=== PATIENT | female | born 1945 | race Caucasian/White ===

== ENCOUNTER 2016-09-22 18:27 | Observation (INO) | payer MEDICARE, BC ==
[~2016-09-22] VITALS: Ht 160 cm; Wt 62.2 kg
[~2016-09-22 18:27] MED LIST: BRILINTA90 MG PO; HYDROCODONE-APA1 TAB PO; XANAX1 MG; XANAX1 MG PO; ZIAC 5-6.25 MG1 TAB PO
[2016-09-22] MEDS ORDERED: PLAVIX75 MG PO (20:08)
[2016-09-22] MEDS ORDERED: ZYRTEC-D T1 TAB.SR . PO (20:09)
[2016-09-22] MEDS ORDERED: BAYER CHEWABLE81 MG PO (20:10)
[2016-09-22 20:25] VITALS: BP 115/76
--- NOTE | 2016-09-22 20:44 | NUR ---
PT ARRIVED FROM ADMISSIONS TO ROOM 2120 AT 1900. AMBULATORY/ALERT. ACCOMPANIED BY HER . ANXIOUS ABOUT BEING IN THE HOSPITAL, APPARENTLY MD WANTED HER TO COME IN YESTERDAY AND SHE PUT IT OFF UNTIL TODAY. NOW THAT SHE IS HERE, PLAN OF CARE HAS BEEN REVIEWED. PT IS VERY UPSET ABOUT ORDERED LAB WORK AND WILL ONLY GIVE LAB ONE ATTEMPT TO COLLECT HER BLOOD. ALL OTHER ORDERS PER DR AQUINO HAVE BEEN INITIATED.
--- NOTE | 2016-09-22 21:35 | NUR ---
ADMISSION LABS DRAWN. PORTABLE CHEST XRAY DONE.
[2016-09-22 21:53] LABS: BASOPHILS 0.4 % (0.0-2.0); EOSINOPHILS 3.5 % (0-7); HEMATOCRIT 40.8 % (36.0-48.0); HEMOGLOBIN 13.3 g/dL (12-16); IMMATURE GRANULOCYTES 0.4 % (0-5); LYMPHOCYTES 30.3 % (15-50); MCH 29.3 pg (26.0-34.0); MCHC 32.6 g/dL (31.0-37.0); MCV 89.9 fL (80.0-100.0); MEAN PLATELET VOLUME 9.7 fL (7.4-10.4); NEUTROPHILS 56.4 % (40-80); PLATELET COUNT 272 10x3/uL (130-400); RBC 4.54 10x6/uL (4.00-5.40); RDW 12.9 % (11.5-14.5); WBC 5.7 10x3/uL (4.8-10.8)
[2016-09-22 21:57] LABS: ALKALINE PHOSPHATASE 88 U/L (46-116); ALT (SGPT) 24 U/L (10-68); CALC OSMOLALITY 286 mosm/kg (275-300); CALCIUM 8.3 mg/dL (8.5-10.1); CARBON DIOXIDE 32.4 mmol/L (21.0-32.0); CHLORIDE - SERUM 107 mmol/L (98-107); CREATININE - SERUM 0.8 mg/dL (0.6-1.3); GLUCOSE 113 mg/dL (74-106); PROTEIN - SERUM 6.3 g/dL (6.4-8.2); SODIUM 143 mmol/L (136-145); UREA NITROGEN 15 mg/dL (7-18); eGFR NON AFRICAN AMERICAN 75 mL/min (90-120)
[2016-09-22 22:08] LABS: CKMB 0.5 U/L (0.0-3.6); CREATINE KINASE 67 UL (21-215); TROPONIN-I < 0.017 ng/mL (0.000-0.060)
[2016-09-23 00:41] VITALS: BP 144/68
[2016-09-23 02:55] VITALS: BP 132/68; Ht 160 cm; Wt 62.2 kg
[2016-09-23 04:09] LABS: CKMB 0.6 U/L (0.0-3.6); CREATINE KINASE 53 UL (21-215); TROPONIN-I < 0.017 ng/mL (0.000-0.060)
--- NOTE | 2016-09-23 04:21 | NUR ---
ALL LABS REVIEWED. NO ABNORMALITIES TO REPORT. PT HAVING NO CHEST PAIN. EKG DONE AT BEDSIDE. SHOWS NSR. AT BEDSIDE. CPOC.
[2016-09-23 05:48] VITALS: BP 121/70
--- NOTE | 2016-09-23 07:20 | NUR ---
PT REFUSING TO WEAR SCD AT THIS TIME SHE IS UP AD NORM
--- NOTE | 2016-09-23 07:21 | NUR ---
PT IN BED SLEEPING NO S/S DISTRESS AT BEDSIDE DENIES NEEDS WILL CONT TO MONITOR.
[2016-09-23 08:55] VITALS: BP 130/62
[2016-09-23 09:38] LABS: CKMB 0.5 U/L (0.0-3.6); CREATINE KINASE 50 UL (21-215)
[2016-09-23 09:39] LABS: TROPONIN-I < 0.017 ng/mL (0.000-0.060)
--- NOTE | 2016-09-23 10:55 | NUR ---
WENT OVER DC PAPERWORK WITH PT PT VERBALIZES UNDERSTANDING. PT WITH NO IV. DC TELE. PT REFUSED WHEELCHAIR. WALKED OUT WITH .
--- NOTE | 2016-09-25 14:16 | CN ---
PATIENT NAME:MAHNAZ ELLIS MEDICAL RECORD: [id number] : 49 LOCATION:D. D.2121 ADMIT DATE: 09/22/16 ACCOUNT: [id number] CONSULTING PHYSICIAN: ALLISON TORRES MD REFERRING PHYSICIAN: JS AQUINO DO DATE OF CONSULTATION: 09/23/2016 Cardiology consultation DIAGNOSES: 1. Chest pain, musculoskeletal. 2. Palpitations. 3. Hypertension. 4. Coronary artery disease. 5. Previous percutaneous transluminal coronary angioplasty stent. HISTORY OF PRESENT ILLNESS: Mrs. Ellis presented to Dr. Aquino's office with chest discomfort. This is clearly musculoskeletal in nature and not cardiac in nature. It came on after lifting a baby all day. She does have a history of coronary artery disease, PTCA stent of her LAD in June. She has no ST-T abnormalities on her EKG. Troponin is normal. Another complaint she has a complain of palpitations. She has had this in the past when she is on bisoprolol for blood pressure and for the palpitations. She has not had any dysrhythmias in here. PHYSICAL EXAMINATION: GENERAL APPEARANCE: Well-nourished, well-developed, appears stated age. Level of distress, comfortable. PSYCHIATRIC: Mental status, alert, normal affect. Orientation, oriented to time, place and person. EYES: Lids and conjunctiva, noninjected. No discharge, no pallor. ENT: Lips, teeth, gums, normal dentition. Oropharynx, no cyanosis, no pallor. NECK: Carotid arteries, bilateral normal upstroke, no bruits, no thrills. JUGULAR VEINS: No jugular venous pressure or distention. CERVICAL LYMPH NODES: Nontender, nonenlarged. THYROID: Not enlarged. Nontender. No nodules. LUNGS: Respiratory effort, unlabored. CHEST: Normal curvature. No thoracic deformity. No chest wall tenderness. Percussion, resonant. Auscultation, clear. No wheezes, no rales, no rhonchi. CARDIOVASCULAR: Precordial exam, nondisplaced. No heaves or pericardial thrills. Rate and rhythm, regular. Heart sounds, normal S1, normal S2. No S3, no gallop, no rub. Systolic murmur, not heard. Diastolic murmur, not heard. EXTREMITIES: No cyanosis, no edema. Peripheral pulses, full and equal in all extremities, except as noted. No bruits appreciated. ABDOMEN: Soft, nondistended. Normal aorta. No bruit. Nontender. No masses. Liver, nontender, no hepatomegaly. Spleen, nontender, no splenomegaly. MUSCULOSKELETAL: No joint tenderness. No joint swelling. No erythema. NEUROLOGICAL: Normal gait, normal strength, normal tone. SKIN: Warm and dry. REVIEW OF SYSTEMS: The patient reports easy bruising but reports no swollen glands. The patient reports no fever, no night sweats, no significant weight gain, no significant weight loss. No significant exercise tolerance. The patient reports no dry eyes, no irritation, no vision change. Patient reports no difficulty hearing and no ear pain. Patient reports no frequent nose bleeds CONSULT REPORT [id number] MAHNAZ ELLIS or nose and sinus problems. Patient reports on arm pain on exertion. No shortness of breath while lying down. No history of heart murmur. Patient reports no cough, no wheezing or coughing up blood. Patient reports no abdominal pain, no vomiting. Normal appetite. No diarrhea and not vomiting blood. No nausea and no constipation. Patient reports no incontinence. No difficulty urinating. No hematuria. No increased frequency. Patient reports no muscle aches. No weakness, no arthralgias, no back pain. No swelling of the extremities. Patient reports no abnormal mole, no jaundice, no rashes. Reports no loss of consciousness. No weakness and no numbness. No seizures, dizziness, or headaches. The patient reports no depression, no sleep disturbance, feeling safe in a relationship and no alcohol abuse. Patient reports on fatigue. Reports no runny nose or sinus pressure. No itching, no hives, and no frequent sneezing. OVERALL IMPRESSION: Chest pain is noncardiac in etiology. Palpitations, but no dysrhythmia here. We will continue the bisoprolol and discharged home. We will see her back and get a 1-week monitor for her to further evaluate the palpitations. TRANSINT:[id number] Voice Confirmation ID: [id number] DOCUMENT ID: [id number] ALLISON TORRSE MD at 1416 CC: [id number] DICTATION DATE: 09/23/16939 SECURITIES TRADER: 09/23/1658 DIS IN 09/23/16 [facility] [address] [place] [address]
== END 2016-09-23 10:56 | disposition home or self-care (01) ==
LOC: D.M2 18:27 → OBSVTIME 18:28 → D.M2 09-23 10:56
PROVIDERS: ADMIT Family Medicine
DX: R00.2 Palpitations (principal); R07.89 Other chest pain; I10 Essential (primary) hypertension; I25.10 Atherosclerotic heart disease of native coronary artery without angina pectoris; Z95.5 Presence of coronary angioplasty implant and graft

== ENCOUNTER → 2016-12-26 12:59 | Outpatient (CLI) | payer MEDICARE, BC ==
[2016-09-23 02:55] VITALS: BMI 24.2
[~2016-12-26 12:59] MED LIST changes: +BAYER CHEWABLE81 MG PO; +PLAVIX75 MG PO; +ZYRTEC-D T1 TAB.SR . PO
== END | disposition home or self-care (01) ==
LOC: D.US 11:00
DX: E05.90 Thyrotoxicosis, unspecified without thyrotoxic crisis or storm (principal)

== ENCOUNTER 2017-04-08 23:28 | Emergency (ER) | payer MEDICARE, BC ==
[2016-09-23 02:55] VITALS: BMI 24.2
[2017-04-08 23:58] LABS: HEMATOCRIT 38.5 % (36.0-48.0); LYMPHOCYTES 26.9 % (15-50); MCHC 33.8 g/dL (31.0-37.0); MCV 85.9 fL (80.0-100.0); NEUTROPHILS 63.6 % (40-80); PLATELET COUNT 306 10x3/uL (130-400); RBC 4.48 10x6/uL (4.00-5.40); RDW 12.7 % (11.5-14.5); WBC 7.8 10x3/uL (4.8-10.8)
[2017-04-09 00:03] LABS: APTT 33.8 SECONDS (22.8-39.4); INR 0.93 (0.85-1.17); PROTIME 12.3 SECONDS (11.6-15.0)
[2017-04-09 00:04] LABS: ALKALINE PHOSPHATASE 125 U/L (46-116); ALT (SGPT) 33 U/L (10-68); CALC OSMOLALITY 290 mosm/kg (275-300); CALCIUM 8.5 mg/dL (8.5-10.1); CARBON DIOXIDE 29.1 mmol/L (21.0-32.0); CHLORIDE - SERUM 107 mmol/L (98-107); CREATININE - SERUM 0.8 mg/dL (0.6-1.3); GLUCOSE 128 mg/dL (74-106); POTASSIUM - SERUM 3.7 mmol/L (3.5-5.1); PROTEIN - SERUM 6.4 g/dL (6.4-8.2); SODIUM 144 mmol/L (136-145); UREA NITROGEN 17 mg/dL (7-18); eGFR NON AFRICAN AMERICAN 75 mL/min (90-120)
[2017-04-09 00:14] LABS: CHOL - HDL RATIO 3.5 ratio (2.3-4.1); CHOLESTEROL, TOTAL 154 mg/dL (0-200); CKMB 0.4 U/L (0.0-3.6); CREATINE KINASE 76 UL (21-215); HDL CHOLESTEROL 44 mg/dL (32-96); LDL CHOLESTEROL 80 mg/dL (0-100); LDL-HDL RATIO 1.8 ratio (1.5-3.5); TRIGLYCERIDE 150 mg/dL (30-200); TROPONIN-I < 0.017 ng/mL (0.000-0.060)
== END 2017-04-09 01:24 | disposition left against medical advice (07) ==
LOC: D.ER 23:28
PROVIDERS: Family Medicine
DX: R07.9 Chest pain, unspecified (principal); J44.9 Chronic obstructive pulmonary disease, unspecified; I10 Essential (primary) hypertension

== ENCOUNTER 2017-12-31 13:02 | Emergency (ER) | payer MEDICARE, BC ==
[2016-09-23 02:55] VITALS: BMI 24.2
[2017-12-31 13:42] LABS: BASOPHILS 0.1 % (0-2); EOSINOPHILS 2.4 % (0-7); HEMATOCRIT 39.7 % (36.0-48.0); HEMOGLOBIN 13.3 g/dL (12-16); LYMPHOCYTES 19.6 % (15-50); MCH 29.2 pg (26.0-34.0); MCHC 33.5 g/dL (31.0-37.0); MCV 87.3 fL (80.0-100.0); MEAN PLATELET VOLUME 9.5 fL (7.4-10.4); MONOCYTES 9.3 % (2-11); NEUTROPHILS 68.6 % (40-80); PLATELET COUNT 264 10x3/uL (130-400); RBC 4.55 10x6/uL (4.00-5.40); RDW 13.6 % (11.5-14.5)
[2017-12-31 14:13] LABS: ALBUMIN 2.9 g/dL (3.4-5.0); ALKALINE PHOSPHATASE 103 U/L (46-116); ALT (SGPT) 22 U/L (10-68); CALC OSMOLALITY 294 mosm/kg (275-300); CALCIUM 9.1 mg/dL (8.5-10.1); CARBON DIOXIDE 25.1 mmol/L (21.0-32.0); CHLORIDE - SERUM 108 mmol/L (98-107); CREATININE - SERUM 0.8 mg/dL (0.6-1.3); POTASSIUM - SERUM 4.1 mmol/L (3.5-5.1); PROTEIN - SERUM 5.9 g/dL (6.4-8.2); SODIUM 144 mmol/L (136-145); UREA NITROGEN 20 mg/dL (7-18); eGFR NON AFRICAN AMERICAN 75 mL/min (90-120)
[2017-12-31 14:14] LABS: GLUCOSE 181 mg/dL (74-106)
[2017-12-31 14:33] LABS: CKMB 0.7 U/L (0.0-3.6); CREATINE KINASE 61 UL (21-215); TROPONIN-I < 0.017 ng/mL (0.000-0.060)
[2017-12-31 14:56] LABS: INR 1.04 (0.85-1.17); PROTIME 13.2 SECONDS (11.6-15.0)
[2017-12-31 15:15] LABS: APPEARANCE CLEAR (CLEAR); BILIRUBIN NEGATIVE (NEGATIVE); COLOR YELLOW (YELLOW); GLUCOSE NEGATIVE (NEGATIVE); KETONE NEGATIVE (NEGATIVE); NITRITE NEGATIVE (NEGATIVE); PROTEIN NEGATIVE (NEGATIVE); SPECIFIC GRAVITY 1.015 (1.005-1.020); UROBILINOGEN NORMAL (NORMAL)
[2017-12-31 16:10] LABS: UDS - AMPHET NEGATIVE QUAL (NEGATIVE); UDS - BARB NEGATIVE QUAL (NEGATIVE); UDS - BENZO NEGATIVE QUAL (NEGATIVE); UDS - COCAINE NEGATIVE QUAL (NEGATIVE); UDS - OPIATE NEGATIVE QUAL (NEGATIVE); UDS - PCP NEGATIVE QUAL (NEGATIVE); UDS - THC NEGATIVE QUAL (NEGATIVE)
== END 2017-12-31 16:58 | disposition home or self-care (01) ==
LOC: D.ER 13:02
PROVIDERS: Family Medicine; Nurse Practitioner Family
DX: R55 Syncope and collapse (principal); S00.83XA Contusion of other part of head, initial encounter; S00.33XA Contusion of nose, initial encounter; W19.XXXA Unspecified fall, initial encounter; Y93.89 Activity, other specified; Y92.019 Unspecified place in single-family (private) house as the place of occurrence of the external cause; R94.6 Abnormal results of thyroid function studies; J44.9 Chronic obstructive pulmonary disease, unspecified; I10 Essential (primary) hypertension

== ENCOUNTER → 2018-01-04 13:14 | Outpatient (CLI) | payer MEDICARE, BC ==
[2016-09-23 02:55] VITALS: BMI 24.2
== END | disposition home or self-care (01) ==
LOC: D.US 13:14
DX: E05.90 Thyrotoxicosis, unspecified without thyrotoxic crisis or storm (principal)

== ENCOUNTER → 2018-04-03 08:47 | Outpatient (CLI) | payer MEDICARE, BC ==
[2016-09-23 02:55] VITALS: BMI 24.2
== END | disposition home or self-care (01) ==
LOC: D.CT 08:47
DX: R10.12 Left upper quadrant pain (principal)

== ENCOUNTER → 2018-05-29 09:46 | Outpatient (CLI) | payer MEDICARE, BC ==
[2016-09-23 02:55] VITALS: BMI 24.2
== END | disposition home or self-care (01) ==
LOC: D.CT 09:30
DX: R55 Syncope and collapse (principal)

== ENCOUNTER 2018-10-16 19:22 | Emergency (ER) | payer MEDICARE, BC ==
[~2018-10-16] VITALS: Ht 160 cm; Wt 59.1 kg
[2018-10-16 19:24] VITALS: Ht 160 cm; Wt 59.1 kg
[2018-10-16] MEDS ORDERED: LISINOPRIL2.5 MG PO (19:26)
[2018-10-16] MEDS ORDERED: TAPAZOLE 5 MG TA5 MG PO (21:48)
[2018-10-16] MEDS ORDERED: VOLTAREN75 MG PO (22:31)
== END 2018-10-16 20:26 | disposition left against medical advice (07) ==
LOC: D.ER 19:22
DX: S92.325A Nondisplaced fracture of second metatarsal bone, left foot, initial encounter for closed fracture (principal); S92.335A Nondisplaced fracture of third metatarsal bone, left foot, initial encounter for closed fracture; S92.345A Nondisplaced fracture of fourth metatarsal bone, left foot, initial encounter for closed fracture; W20.8XXA Other cause of strike by thrown, projected or falling object, initial encounter; Y93.89 Activity, other specified; Y92.89 Other specified places as the place of occurrence of the external cause; I10 Essential (primary) hypertension; J44.9 Chronic obstructive pulmonary disease, unspecified; F17.200 Nicotine dependence, unspecified, uncomplicated

== ENCOUNTER 2018-10-16 21:41 | Emergency (ER) | payer MEDICARE, BC ==
[~2018-10-16] VITALS: Ht 160 cm; Wt 65.9 kg
[~2018-10-16 21:41] MED LIST changes: +LISINOPRIL2.5 MG PO
[2018-10-16 21:47] VITALS: Ht 160 cm; Wt 65.9 kg
[2018-10-16] MEDS ORDERED: TAPAZOLE 5 MG TA5 MG PO (21:48)
[2018-10-16] MEDS ORDERED: VOLTAREN75 MG PO (22:31)
[2018-10-16 22:54] VITALS: BP 129/74
== END 2018-10-16 23:36 | disposition home or self-care (01) ==
LOC: D.ER 21:41
DX: S92.325A Nondisplaced fracture of second metatarsal bone, left foot, initial encounter for closed fracture (principal); S92.335A Nondisplaced fracture of third metatarsal bone, left foot, initial encounter for closed fracture; S92.345A Nondisplaced fracture of fourth metatarsal bone, left foot, initial encounter for closed fracture; W23.0XXA Caught, crushed, jammed, or pinched between moving objects, initial encounter; Y93.89 Activity, other specified; Y92.89 Other specified places as the place of occurrence of the external cause

== ENCOUNTER → 2019-04-10 09:00 | Outpatient (CLI) | payer MEDICARE, BC ==
[2018-10-16 21:47] VITALS: BMI 25.7
[~2019-04-10 09:00] MED LIST changes: +TAPAZOLE 5 MG TA5 MG PO; +VOLTAREN75 MG PO
== END | disposition home or self-care (01) ==
LOC: D.MAMMO 09:00
PROVIDERS: ATTEND Family Medicine
DX: N63.10 Unspecified lump in the right breast, unspecified quadrant (principal)

== ENCOUNTER 2019-09-08 15:15 | Emergency (ER) | payer MEDICARE, BC ==
[~2019-09-08] VITALS: Ht 160 cm; Wt 65.9 kg
[2019-09-08 15:26] VITALS: BP 146/74; Ht 160 cm; Wt 65.9 kg
[2019-09-08 15:59] LABS: BASOPHILS 0.1 % (0-2); EOSINOPHILS 2.3 % (0-7); HEMATOCRIT 41.4 % (36.0-48.0); HEMOGLOBIN 13.8 g/dL (12-16); IMMATURE GRANULOCYTES 0.1 % (0-5); LYMPHOCYTES 15.4 % (15-50); MCH 30.3 pg (26.0-34.0); MCHC 33.3 g/dL (31.0-37.0); MEAN PLATELET VOLUME 9.3 fL (7.4-10.4); MONOCYTES 9.5 % (2-11); NEUTROPHILS 72.6 % (40-80); PLATELET COUNT 262 10x3/uL (130-400); RBC 4.55 10x6/uL (4.00-5.40); RDW 13.7 % (11.5-14.5); WBC 7.1 10x3/uL (4.8-10.8)
[2019-09-08 16:14] LABS: CALC OSMOLALITY 285 mosm/kg (275-300); CALCIUM 8.1 mg/dL (8.5-10.1); CARBON DIOXIDE 27.4 mmol/L (21.0-32.0); CHLORIDE - SERUM 107 mmol/L (98-107); CREATININE - SERUM 0.7 mg/dL (0.6-1.3); POTASSIUM - SERUM 3.9 mmol/L (3.5-5.1); SODIUM 142 mmol/L (136-145); UREA NITROGEN 22 mg/dL (7-18); eGFR NON AFRICAN AMERICAN 87 mL/min (90-120)
[2019-09-08 16:18] LABS: GLUCOSE 100 mg/dL (74-106)
[2019-09-08 16:19] LABS: ALKALINE PHOSPHATASE 105 U/L (46-116); ALT (SGPT) 25 U/L (10-68); BILIRUBIN - TOTAL 0.89 mg/dL (0.2-1.3); PROTEIN - SERUM 6.1 g/dL (6.4-8.2)
[2019-09-08] MEDS ORDERED: BACLOFEN20 M1 PO (17:08)
[2019-09-08] MEDS ORDERED: VOLTAREN75 MG PO (17:08)
== END 2019-09-08 17:47 | disposition home or self-care (01) ==
LOC: D.ER 15:15
PROVIDERS: Family Medicine
DX: R51 Headache (principal); M54.9 Dorsalgia, unspecified; I10 Essential (primary) hypertension; E07.9 Disorder of thyroid, unspecified; M79.7 Fibromyalgia